=== PATIENT | female | born 1995 | race Caucasian/White ===

== ENCOUNTER 2023-09-25 06:55 | Inpatient (IN) ==
[2023-09-25] MEDS ORDERED: ACETAMINOPHEN 1,000 MG/100 ML VIAL IV STA ×2 (07:24→15:11)
[2023-09-25] MEDS ORDERED: ONDANSETRON INJ 2 MG/ML 2 ML VIAL IV STA ×2 (07:24→11:14)
[2023-09-25] MEDS ORDERED: SODIUM CHLORIDE 0.9% 1,000 ML IV STA (07:24)
--- NOTE | 2023-09-25 07:46 | Emergency Department Note ---
ED Provider Note History of Present Illness Chief Complaint: Abdominal Pain Stated Complaint: PAIN RT SIDE UNDER RIB CAGE,BACK PAIN CLEARED L&D Time Seen by Provider: 09/25/23 07:07 28-year-old female who presents to the emergency department with complaint of right upper quadrant, flank and back pain. Patient reports that the pain awakened her around 4 AM this morning. The patient got into a bathtub, and reports that this only made it worse. Patient has also had several episodes of nausea and vomiting. The patient reports that she has recently been constipated. The patient is currently 30 weeks . She was seen by CERTIFIED MASSAGE THERAPIST this morning, and cleared for any related etiologies. Patient denies eating any unusual foods yesterday. She denies any known sick contacts. The patient rates her discomfort a 4 out of 10. Patient is status post cholecystectomy. Home Medications Medication Instructions Recorded Confirmed Type vits no.[id number]-ferrous fum 1 tab PO QPM 09/25/23 09/25/23 History 27 mg iron-folic acid 800 mcg tablet ( Vitamin) Allergies Allergy/AdvReac Type Severity Reaction Status Date / Time cinnamon Allergy Intermediate Tongue Verified 09/25/23 11:38 swells No Known Drug Allergies Allergy 0 Verified 09/25/23 11:38 Past Med/Surg History Medical History Varicella vaccination History of COVID-19 diagnosed end of 04/2022 via home test ONLY--cough, fatigue, body aches, loss of taste/smell, fever--no symptoms now Medical marijuana use MRSA infection 2014 IBS (irritable bowel syndrome) GERD (gastroesophageal reflux disease) DVT (deep venous thrombosis) 06/2018 after immobilization from bunionectomy Treated with AC for 2 months, no problems since Migraines Surgical History S/P cholecystectomy History of colonoscopy History of esophagogastroduodenoscopy (EGD) last 05/2022 @ [facility] History of incision and drainage ~2014 r/t MRSA infection in leg (unsure of side) History of bunionectomy right foot S/P wisdom tooth extraction Family History Grandmother (Maternal) Breast cancer Grandmother Breast cancer maternal great grandmother Mother Diabetes IBS (irritable bowel syndrome) Grandfather (Maternal) Myocardial infarction Other No family history of adverse response to anesthesia Denies family history of Ovarian cancer Prostate cancer Colorectal cancer Uterine cancer Social History Smoking Status: Never smoker Second Hand Exposure: No; Do You Dip or Chew Tobacco: No; Hx Alcohol Use: No Hx Substance Use: No Preferred Language: Kittitian Communication Ability: Effective Visual Impairment: No Limitations Hearing Ability: Normal Care Services Manager Required: No Beliefs That Will Affect Care: None marital status: marital status details: Aric Hammonds (28) [phone] Current Living Situation: Significant Other Current Living Situation Comment: Lives with eliza cannon-Fob changing ltter current occupational status: employed 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 [employer] Feels Safe at Home: Yes Childhood Exposure to Second-Hand Smoke: No Diet: other Diet Comment: Light diet caffeine: Yes during the past year weight has: remained stable Dental Care, Regularly: Yes Physical Activity Frequency: 1-2 Times per Week Seatbelt Use: always Sunscreen Use: Yes Assistive Devices: Contacts and Glasses Physical Exam Vital Signs Vital Signs - 24 hr 09/25/23 06:56 09/25/23 07:15 09/25/23 08:18 Temperature 36.6 C Temperature Source Temporal Artery Scan Pulse Rate 82 57 L Pulse Rate [Apical] 62 Respiratory Rate 18 18 Respiratory Effort / Characteristics Non-Labored Spontaneous Respiratory Depth Normal Respiratory Pattern Regular Blood Pressure 136/78 Blood Pressure [Left Arm] 119/70 Blood Pressure Mean 97 Blood Pressure Mean [Left Arm] 86 Blood Pressure Position [Left Arm] Lying Pulse Oximetry 100 100 Oxygen Delivery Method Room Air Sepsis Recent Fever Within 48 Hours No Sepsis New/Unexplained Change in Mental Status N/A Sepsis Action Taken by Nursing No Action Required 09/25/23 10:56 09/25/23 12:04 09/25/23 12:25 Temperature Temperature Source Pulse Rate 79 Pulse Rate [Apical] 58 L 60 Respiratory Rate 18 18 Respiratory Effort / Characteristics Non-Labored Spontaneous Non-Labored Spontaneous Respiratory Depth Normal Normal Respiratory Pattern Regular Regular Blood Pressure Blood Pressure [Left Arm] 135/69 153/77 H Blood Pressure Mean Blood Pressure Mean [Left Arm] 91 102 Blood Pressure Position [Left Arm] Lying Lying Pulse Oximetry 99 100 Oxygen Delivery Method Room Air Room Air Sepsis Recent Fever Within 48 Hours Sepsis New/Unexplained Change in Mental Status Sepsis Action Taken by Nursing 09/25/23 14:48 09/25/23 16:24 Temperature Temperature Source Pulse Rate 76 Pulse Rate [Apical] 85 Respiratory Rate 18 Respiratory Effort / Characteristics Non-Labored Spontaneous Respiratory Depth Normal Respiratory Pattern Regular Blood Pressure Blood Pressure [Left Arm] 150/84 H Blood Pressure Mean Blood Pressure Mean [Left Arm] 106 Blood Pressure Position [Left Arm] Lying Pulse Oximetry 100 Oxygen Delivery Method Room Air Sepsis Recent Fever Within 48 Hours Sepsis New/Unexplained Change in Mental Status Sepsis Action Taken by Nursing CONSTITUTIONAL: Healthy and well nourished. Patient appears in moderate discomfort. HEENT: No scleral icterus or conjunctival injection/pallor. NECK: Full active range of motion without discomfort. RESPIRATORY: Clear to auscultation bilaterally with no wheezing, crackles, rhonchi or stridor. CARDIOVASCULAR: Regular rate and rhythm with no murmurs, rubs or gallops. GASTROINTESTINAL: Bowel sounds present in all quadrants. Patient has generalized upper abdominal tenderness to palpation. Negative CVA tenderness. Negative McBurney's point tenderness. No abdominal rigidity, guarding or rebound MUSCULOSKELETAL: Full range of motion of all joints without discomfort. INTEGUMENTARY: No rash or other significant dermatologic conditions noted. HEMATOLOGIC: No ecchymosis or petechiae. PSYCHIATRIC: Flat affect. NEUROLOGIC: No focal neurologic deficits noted. Course Course Patient history and physical exam were performed. Nurses notes were reviewed. Vital signs were reviewed and were normal. IV access was established, and labs were drawn. Patient was hydrated with a liter normal saline, and administered IV Zofran and Toradol. Review of labs shows a white count of over 18,000. Remaining labs, including CMP and lipase are normal. Urinalysis is not suggestive of infection. Findings were discussed with Dr. Crandall, ED attending physician, regarding imaging modalities. He recommended that I discussed the case further with a radiologist. I then discussed the case further with Dr. Dixon, who recommended a CT with IV contrast for further assessment. CT was performed, showing an asymmetric enlargement of the right adrenal gland with adjacent stranding of the adrenal gland, as well as the mid to upper pole of the right kidney. No hydronephrosis or ureteral calculi are appreciated. The appendix also appeared to be normal. Findings were discussed with the patient and Dr. Crandall. At this point, I reached out to Dr. Hollis Fox, [facility] nephrology, who was uncertain of possible etiologies for the patient's symptoms and CT findings. After further discussions with Dr. Crandall, I reached out to Dr. Baker, [facility] endocrinology, he further discussed the case with Dr. Dixon, and had concerns for possible adrenal hemorrhage. He is recommending that the patient be admitted with cortisol levels and MRI studies. The patient initially was resistant to admission, but after discussing her findings, she did agree to be admitted. Dr. Crandall also discussed the case with the patient as well. The case was then discussed with the [facility] hospitalist service, who in turn spoke with the general surgeon and CERTIFIED MASSAGE THERAPIST on-call. It was recommended that the patient be transferred to a facility with a NICU in case she goes into delivery. I discussed these conversations again with the patient, who has agreed to transfer to [facility]. I then spoke with Dr. Silver, endocrinology resident, who indicated that given the patient's presenting symptoms, labs and elevated blood pressure, the patient likely is not in adrenal crisis. At this point, he did not feel that the patient requires emergent transfer, but did recommend ordering a cortisol level, and provide an initial IV dose of hydrocortisone 50 mg. The case was then further discussed with the hospitalist and attending physician, as well as the patient. An order was placed for hydrocortisone 50 mg IV. I also put an order in for an an abdominal MRI. Shortly after doing so, I received a return phone call from Dr. Silver, who discussed this with his attending and peers, especially given the patient's status, and was recommended that she be transferred to [facility] for further management. The patient was in agreement with this plan as well. The case was also discussed with Dr. Mehta, triage physician, who indicated that they would provide a bed assignment for direct admission. While in the emergency department, the patient reported adequate nausea and pain control. While awaiting bed assignment, random cortisol level did return at 43.41. I did recontact Dr. Silver, who indicated that the patient did not need any additional administration of hydrocortisone. The patient was also somewhat frustrated while awaiting bed assignment, reporting persistent nausea and pain. After further discuss symptoms with Dr. Crandall, the patient was administered additional IV Dilaudid, Tylenol and Phenergan. At approximately 4 PM, I had our construction secretary reach out to the [facility] center to determine bed availability, and was advised that the patient likely would not be able to be transferred until tomorrow. At this point, the case was then discussed [facility], as well as Dr. Roy, [facility] hospitalist, who indicated that we do not have any beds available either. I indicated that I would order an MRI. Hospitalist also recommended that I ask if CERTIFIED MASSAGE THERAPIST would admit the patient. I reached out to Dr. Morris, CERTIFIED MASSAGE THERAPIST, however she was going into a delivery case. Administered Medications Sodium Chloride (Nss) 500 mls @ 125 mls/hr IV .Q4H HOSSEIN Stop: 10/25/23 12:44 Last Admin: 09/25/23 13:06 Dose: 125 mls/hr Documented By: SHAYE Discontinued Medications Hydrocortisone Sodium Succinate (Hydrocortisone Sod Succinate 100 Mg/2 Ml Vial) 50 mg IV NOW STA Stop: 09/25/23 12:13 Last Admin: 09/25/23 13:06 Dose: 50 mg Documented By: SHAYE Hydromorphone HCl (Hydromorphone Inj 0.5 Mg/0.5 Ml Syr) 0.25 mg IV NOW STA Stop: 09/25/23 11:15 Last Admin: 09/25/23 11:20 Dose: 0.25 mg Documented By: SHAYE Hydromorphone HCl (Hydromorphone Inj 0.5 Mg/0.5 Ml Syr) 0.5 mg IV NOW STA Stop: 09/25/23 15:12 Last Admin: 09/25/23 15:58 Dose: 0.5 mg Documented By: ANA Sodium Chloride (Nss) 1,000 mls @ 999 mls/hr IV .Q1H1M STA Stop: 09/25/23 08:24 Last Infusion: 09/25/23 10:57 Dose: Infused Documented By: Admin: 09/25/23 07:39 Dose: 999 mls/hr Documented By: SHAYE Acetaminophen (Ofirmev) 1,000 mg in 100 mls @ 400 mls/hr IV NOW STA Stop: 09/25/23 07:38 Last Infusion: 09/25/23 08:17 Dose: Infused Documented By: Admin: 09/25/23 07:39 Dose: 400 mls/hr Documented By: SHAYE Acetaminophen (Ofirmev) 1,000 mg in 100 mls @ 400 mls/hr IV NOW STA Stop: 09/25/23 15:25 Last Infusion: 09/25/23 16:13 Dose: Infused Documented By: Admin: 09/25/23 15:58 Dose: 400 mls/hr Documented By: ANA Promethazine HCl (Phenergan) 6.25 mg in 50.25 mls @ 201 mls/hr IV NOW STA Stop: 09/25/23 15:25 Last Infusion: 09/25/23 16:20 Dose: Infused Documented By: Admin: 09/25/23 16:00 Dose: 201 mls/hr Documented By: ANA Ioversol (Optiray 320 500ml) 87 ml IV ONCE ONE Stop: 09/25/23 08:55 Last Admin: 09/25/23 08:54 Dose: 87 ml Documented By: SLOAN Metoclopramide HCl (Metoclopramide Hcl Inj 5 Mg/Ml 2 Ml Vial) 5 mg IV ONE ONE Stop: 09/25/23 12:39 Last Admin: 09/25/23 13:06 Dose: 5 mg Documented By: SHAYE Ondansetron HCl (Ondansetron Inj 2 Mg/Ml 2 Ml Vial) 4 mg IV NOW STA Stop: 09/25/23 07:25 Last Admin: 09/25/23 07:39 Dose: 4 mg Documented By: SHAYE Ondansetron HCl (Ondansetron Inj 2 Mg/Ml 2 Ml Vial) 4 mg IV NOW STA Stop: 09/25/23 11:15 Last Admin: 09/25/23 11:21 Dose: 4 mg Documented By: SHAYE Medical Decision Making Medical Records Attestation: I reviewed the patient's medical records. Home Medications was personally reviewed by me Laboratory Data Attestation: I reviewed the patient's lab results. 09/25/23 07:40 09/25/23 07:40 Lab Results 09/25/23 09/25/23 Range/Units 07:40 08:47 WBC 18.20 H (4.8-10.8) K/ul RBC 4.11 L (4.20-5.40) M/uL Hgb 12.5 (12.0-16.0) g/dl Hct 37.4 (37.0-47.0) % MCV 91.0 (80.0-100.0) fL MCH 30.4 (25.0-34.0) pg MCHC 33.4 (32.0-36.0) g/dL RDW Std Deviation 40.9 (36.4-46.3) fL RDW Coeff of Nikki 12.3 (11.5-14.5) % Plt Count 387 (130-400) K/uL MPV 10.0 (9.4-12.4) fL Immature Gran % (Auto) 1.3 % Neut % (Auto) 86.8 % Lymph % (Auto) 7.0 % [place] % (Auto) 4.5 % Eos % (Auto) 0.1 % Baso % (Auto) 0.3 % Neut # (Auto) 15.80 H (1.40-6.50) K/uL Lymph # (Auto) 1.27 (1.20-3.40) K/uL [place] # (Auto) 0.82 H (0.11-0.59) K/uL Eos # (Auto) 0.02 (0.00-0.50) K/uL Baso # (Auto) 0.05 (0.00-0.20) K/uL Immature Gran # (Auto) 0.24 H (0.01-0.20) K/uL Sodium 136 (136-145) mmol/L Potassium 3.6 (3.5-5.1) mmol/L Chloride 104 (98-107) mmol/L Carbon Dioxide 23 (21-32) mmol/L Anion Gap 9 (3-11) BUN 5 L (6-23) mg/dl Creatinine 0.51 L (0.6-1.2) mg/dl Est Cr Clr Drug Dosing Not Reportable Est GFR ( Amer) > 150.0 ml/min Est GFR (Non-Af Amer) 130.9 ml/min BUN/Creatinine Ratio 9.8 L (10-20) Glucose 162 H (70-99(Fasting)) mg/dl Calcium 8.2 L (8.6-10.3) mg/dl Total Bilirubin 0.2 (0.2-1.0) mg/dl AST 11 L (13-39) U/L ALT 11 (7-52) U/L Alkaline Phosphatase 75 (34-104) U/L Total Protein 6.4 (6.0-8.3) gm/dl Albumin 3.6 (3.4-5.0) gm/dl Globulin 2.8 (2.5-4.0) gm/dl Albumin/Globulin Ratio 1.3 (0.9-2) Lipase 15 (11-82) U/L Random Cortisol 43.41 mcg/dl Urine Color Yellow Urine Appearance Cloudy A (Clear) Urine pH 8.0 H (4.5-7.5) Ur Specific [place] 1.015 (1.000-1.030) Urine Protein Negative (Negative) Urine Glucose (UA) 2+ H (Negative) Urine Ketones Trace H (Negative) Urine Blood Negative (Negative) Urine Nitrite Negative (Negative) Urine Bilirubin Negative (Negative) Urine Urobilinogen Negative (Negative) Ur Leukocyte Esterase Trace H (Negative) Urine WBC (Auto) 1-5 (0-5) /hpf Urine RBC (Auto) 0-4 (0-4) /hpf U Hyaline Cast (Auto) 1-5 (0-5) /lpf U Epithel Cells (Auto) >30 H (0-5) /lpf Urine Bacteria (Auto) Negative (Negative) Ur Renal Epithelial Cell Not Reportable Imaging Data Attestation: I personally reviewed and interpreted this imaging study as follows: My Impression: My interpretation of a CT with IV contrast of the abdomen and pelvis did not show evidence for hydronephrosis, obvious ureteral calculi, bowel obstruction or abdominal free air. Radiologist is questioning right adrenal gland enlargement with adjacent stranding, with differentials possibly being an early right adrenal hemorrhage or pyelonephritis. Radiologist report is included below, and was reviewed with concurrence. Radiologist's Impression: Abdomen/Pelvis CT 09/25/23 08:24 CT OF THE ABDOMEN AND PELVIS WITH CONTRAST CLINICAL HISTORY: RUQ/R flank pain, elev WBC, 30 wks preg COMPARISON STUDY: CT of the abdomen and pelvis September 10, 2020. Right upper quadrant ultrasound March 08, 2022. TECHNIQUE: Following IV administration of 87 mL of Optiray, axial images of the abdomen and pelvis were obtained from the lung bases to the proximal femurs. Images were reviewed in the axial, sagittal, and coronal planes. IV contrast was administered without complication. Automated exposure control was utilized for the study. A dose lowering technique was utilized adhering to the principles of ALARA. CT DOSE: 1317.25 mGy.cm FINDINGS: Lung bases are unremarkable. No pneumatosis, free air or portal venous gas is present. There is no biliary ductal dilatation status post cholecystectomy. There are no hepatic lesions. Spleen, left adrenal gland, left kidney and pancreas are normal. There is no hydronephrosis. No urinary calculi are identified although sensitivity is diminished given excreted contrast. There is asymmetric enlargement of the right adrenal gland which maintains adreniform configuration. The right adrenal gland appears edematous with moderate adjacent stranding. There is also stranding adjacent to the mid to upper pole of the right kidney. The nephrograms are symmetric. There is no abscess. Major vasculature is patent. The caliber and wall thickness of small and large bowel are normal. The appendix is normal. There is no lymphadenopathy. There are no fluid collections. Intrauterine gestation is present. IMPRESSION: 1. Asymmetric enlargement of the right adrenal gland with stranding adjacent to the right adrenal gland and mid to upper pole of the right kidney. Homogeneous enhancement of the right kidney. No hydronephrosis. No ureteral calculi. These findings are nonspecific. Although pyelonephritis is within the differential, the right adrenal gland appears to be the primary abnormality. Therefore, nonspecific right adrenal inflammation is within the differential. An early right adrenal hemorrhage could appear similar. Findings discussed with Gabo Ferrera at time of dictation. 2. Intrauterine gestation. 3. Normal appendix. No bowel obstruction. No bowel wall thickening. ACT 112: Negative or not required by law. Electronically signed by: bK Dixon M.D. 09/25/2023 9:20 AM MDM Narrative See ED Course section for further details of today's visit. The patient reports to the emergency department with complaint of right upper quadrant, right flank and right back pain, along with nausea and vomiting upon awakening this morning. The patient was also previously seen this morning by CERTIFIED MASSAGE THERAPIST who did not feel that symptoms were due to her current , and was referred to the emergency department for further workup. Patient did have lab work showing a notably elevated white count of over 18,000. Given the patient's symptoms, CT with IV contrast of the abdomen and pelvis was performed, showing a right adrenal enlargement with adjacent stranding. Differentials considered included hemorrhage. Additional workup does not show evidence for UTI. Lab work also is not suggestive of pancreatitis or hepatitis. The patient is status post cholecystectomy. Given the patient's symptoms and adrenal enlargement, the patient will be admitted for further lab workup, including cortisol levels, and MRI studies. The case was discussed with multiple providers, including radiology, nephrology and endocrinology, both at our facility and [facility]. Based on her abnormal CT findings, concern for adrenal crisis/insufficiency, and third trimester status, it was determined that transfer to a tertiary care center was warranted. The patient will be direct admitted to [facility]. Patient will be transferred via ALS ambulance for further monitoring en route. After contacting [facility], we were advised that the patient's bed would not likely be available until tomorrow. At this point, I did reach out to the hospitalist service, who asked that I speak with CERTIFIED MASSAGE THERAPIST to see if they would consider admitting the patient's since we did not have any additional inpatient hospital beds available. I was awaiting this conversation with Dr. Koenig, but unfortunately she went into a delivery. At change of shift, the case was then further discussed with Yudith Mosquera PA-C, who will discuss this further with Dr. Koenig, advising her of the patient's pending MRI studies. Impression Adrenal abnormality, Acute right flank pain, Third trimester Discharge Plan Visit Data Chief Complaint: Abdominal Pain Stated Complaint: PAIN RT SIDE UNDER RIB CAGE,BACK PAIN CLEARED L&D ED Provider: Tal Crandall ED Midlevel Provider: Yudith Mosquera Discharge Problem: Adrenal abnormality, Acute right flank pain, Third trimester Forms Stand Alone Forms: [email or web address] Prescriptions Prescriptions: No Action Vitamin 27 mg iron- 800 mcg Tablet 1 tab PO QPM Referrals Referrals: Joaquina Mendenhall CRNP [Primary Care Provider] -
[2023-09-25 07:57] LABS: Basophils # (auto) 0.05 K/uL (0.00-0.20); Basophils % (auto) 0.3 %; Eosinophils # (auto) 0.02 K/uL (0.00-0.50); Eosinophils % (auto) 0.1 %; Hematocrit (blood only) 37.4 % (37.0-47.0); Hemoglobin 12.5 g/dl (12.0-16.0); Immature Granulocytes # (auto) 0.24 K/uL (0.01-0.20); Immature Granulocytes % (auto) 1.3 %; Lymphocytes # (auto) 1.27 K/uL (1.20-3.40); Mean Corpuscular Hemoglobin 30.4 pg (25.0-34.0); Mean Corpuscular Hgb Conc 33.4 g/dL (32.0-36.0); Monocytes # (auto) 0.82 K/uL (0.11-0.59); Monocytes % (auto) 4.5 %; Neutrophils % (auto) 86.8 %; Platelet Count 387 K/uL (130-400); RDW Coefficient of Variation 12.3 % (11.5-14.5); RDW Standard Deviation 40.9 fL (36.4-46.3); Red Blood Count 4.11 M/uL (4.20-5.40)
[2023-09-25 08:13] LABS: Alanine Aminotransferase 11 U/L (7-52); Albumin Globulin Ratio 1.3 (0.9-2); Albumin Level 3.6 gm/dl (3.4-5.0); Alkaline Phosphatase 75 U/L (34-104); Anion Gap 9 (3-11); Aspartate Aminotransferase 11 U/L (13-39); BUN Creatinine Ratio 9.8 (10-20); Bilirubin,Total 0.2 mg/dl (0.2-1.0); Blood Urea Nitrogen 5 mg/dl (6-23); Calcium 8.2 mg/dl (8.6-10.3); Carbon Dioxide 23 mmol/L (21-32); Chloride 104 mmol/L (98-107); Est GFR (African American) > 150.0 ml/min; Est GFR (Non-African American) 130.9 ml/min; Globulin 2.8 gm/dl (2.5-4.0); Glucose 162 mg/dl (70-99(Fasting)); Lipase 15 U/L (11-82); Potassium 3.6 mmol/L (3.5-5.1); Sodium 136 mmol/L (136-145); Total Protein 6.4 gm/dl (6.0-8.3)
[2023-09-25] MEDS ORDERED: OPTIRAY 320 500ml IV ONE (08:54)
[2023-09-25 09:00] LABS: Appearance Urine Cloudy (Clear); Bacteria Urine Automated Negative (Negative); Bilirubin Urine Negative (Negative); Blood Urine Negative (Negative); Color Urine Yellow; Epithelial Cell Urine Auto >30 /lpf (0-5); Glucose Urine UA 2+ (Negative); Ketones Urine Trace (Negative); Leukocyte Esterase Urine Trace (Negative); Nitrite Urine Negative (Negative); Protein Urine Negative (Negative); RBC Urine Automated 0-4 /hpf (0-4); Specific Gravity Urine 1.015 (1.000-1.030); Urobilinogen Urine Negative (Negative)
--- NOTE | 2023-09-25 09:22 | CT Scan Report ---
CT OF THE ABDOMEN AND PELVIS WITH CONTRAST CLINICAL HISTORY: RUQ/R flank pain, elev WBC, 30 wks preg COMPARISON STUDY: CT of the abdomen and pelvis September 10, 2020. Right upper quadrant ultrasound Ju ne 2021. TECHNIQUE: Following IV administration of 87 mL of Optiray, axial images of the abdomen and pelvis we re obtained from the lung bases to the proximal femurs. Images were reviewed in the axial, sagittal, and coronal planes. IV contrast was administered without complication. Automated exposure control wa s utilized for the study. A dose lowering technique was utilized adhering to the principles of ALARA . CT DOSE: 1317.25 mGy.cm FINDINGS: Lung bases are unremarkable. No pneumatosis, free air or portal venous gas is present. Ther e is no biliary ductal dilatation status post cholecystectomy. There are no hepatic lesions. Spleen, left adrenal gland, left kidney and pancreas are normal. There is no hydronephrosis. No urinary calcu li are identified although sensitivity is diminished given excreted contrast. There is asymmetric enl argement of the right adrenal gland which maintains adreniform configuration. The right adrenal gland appears edematous with moderate adjacent stranding. There is also stranding adjacent to the mid to u pper pole of the right kidney. The nephrograms are symmetric. There is no abscess. Major vasculature is patent. The caliber and wall thickness of small and large bowel are normal. The appendix is normal . There is no lymphadenopathy. There are no fluid collections. Intrauterine gestation is present. IMPRESSION: 1. Asymmetric enlargement of the right adrenal gland with stranding adjacent to the right adrenal gla nd and mid to upper pole of the right kidney. Homogeneous enhancement of the right kidney. No hydrone phrosis. No ureteral calculi. These findings are nonspecific. Although pyelonephritis is within the d ifferential, the right adrenal gland appears to be the primary abnormality. Therefore, nonspecific ri ght adrenal inflammation is within the differential. An early right adrenal hemorrhage could appear s imilar. Findings discussed with Gabo Ferrera at time of dictation. 2. Intrauterine gestation. 3. Normal appendix. No bowel obstruction. No bowel wall thickening. ACT 112: Negative or not required by law. Electronically signed by: Kb Dixon M.D. 09/25/2023 9:20 AM
[2023-09-25] MEDS ORDERED: HYDROmorphone INJ 0.5 MG/0.5 ML SYR IV STA ×3 (11:14→20:00)
[2023-09-25] MEDS ORDERED: HYDROCORTISONE SOD SUCCINATE 100 MG/2 ML VIAL IV STA (12:12)
[2023-09-25] MEDS ORDERED: METOCLOPRAMIDE HCL INJ 5 MG/ML 2 ML VIAL IV ONE (12:38)
[2023-09-25] MEDS: SODIUM CHLORIDE 0.9% 500 ML IV SCH ×3 (13:06→20:27)
[2023-09-25] MEDS ORDERED: PROMETHAZINE 6.25 MG/50.25 ML BAG IV STA (15:11)
--- NOTE | 2023-09-25 15:33 | Emergency Department Note ---
ED Visit Note I was consulted by the Advanced Practice Provider, Gabo Ferrera PA-C. I personally made/approved the management plan and take responsibility for the patient management. I performed a substantive portion of the visit. This includes the aspects of: -History/Physical/Personally seeing the patient -MDM -I independently interpreted the following studies: CT imaging of the abdomen pelvis performed after discussion with radiology. Right upper quadrant concerning for possible adrenal hemorrhage. Cortisol testing performed and is within normal limits. [facility], endocrinology, nephrology, and internal medicine consulted here. Transfer was recommended. [facility] was consulted. Patient accepted in transfer. Patient was treated symptomatically with Dilaudid and antiemetics. Interfacility medical command done by me. Please see SABA note for further details. .
--- NOTE | 2023-09-25 17:33 | Emergency Department Note ---
ED Visit Note Care of this patient was signed out to me by Gabo Ferrera PA-C at change of shift. 4 am right side pain, vomiting - gets uncomfortable during night 30 weeks feeling better now nausea, .
[2023-09-25] MEDS ORDERED: cefTRIAXone SODIUM 2,000 MG/50 ML BAG IV STA (17:47)
--- NOTE | 2023-09-25 18:47 | Magnetic Resonance Report ---
MR abdomen wo con HISTORY: 28 years-old Female Eval R adrenal edema, possible hemorrhage acute bilateral flank pain COMPARISON: CT abdomen and pelvis of same day TECHNIQUE: Multiplanar multisequence MRI of the abdomen was obtained without the use of IV contrast. FINDINGS: Study is motion degraded. No acute abnormality identified within the imaged lower chest. Spleen, and left adrenal gland are unremarkable. 7 mm T2 hyperintense lesion of the pancreatic tail may represent a sidebranch IPMN. Cholecystectomy. Unremarkable liver. An intrauterine fetus is noted in cephalic p ositioning. Superior position of the placenta. No hydronephrosis. There is inflammatory stranding adj acent to the superior pole right kidney. The right adrenal gland medial and lateral limbs are thicken ed with increased T2 signal demonstrate moderate surrounding inflammatory stranding. Conglomerate adr enal glands overall measure up to 4.4 x 1.4 x 3.0 cm on image 8 series 6. No definite T1 hyperintensi ty noted on the T1 images however these are very motion degraded. No bowel obstruction or bowel wall thickening identified. Unremarkable abdominal aorta and IVC. No ly mphadenopathy. Unremarkable soft tissues and osseous structures. IMPRESSION: 1. Motion degraded exam. 2. Asymmetric enlargement of the right adrenal gland with increased T2 signal and surrounding moderat e amount of edema suggestive of spontaneous adrenal hemorrhage. 3. Inflammation surrounding the superior pole right kidney is likely secondary to the adrenal patholo gy. 4. No hydronephrosis. 5. Partially imaged intrauterine fetus. ACT 112: Negative or not required by law. The above report was generated using voice recognition software. It may contain grammatical, syntax o r spelling errors. Electronically signed by: Nikolay Kwon M.D. 09/25/2023 6:45 PM
--- NOTE | 2023-09-25 19:15 | History & Physical Report ---
Date of Service September 25, 2023 Assessment & Plan (1) Acute right flank pain: Plan: Patient being admitted with acute right flank pain. CT scan and MRI showing early signs of right adrenal gland hemorrhage. Cortisol level have not decreased and BP is stable. ED ordered a one time dose of 50 mg of hydrocortisone Patient accepted for transfer at [place] in case patient went into labor, as this facility does not have a NICU> D/W Surgery Specialist. will monitor for now. (2) Adrenal abnormality: Plan: as above (3) Third trimester : Plan: consult human resources consultant Recommend antibiotics for possible UTI. History of Present Illness Chief Complaint: right flank pain Primary Care Provider: JAIMIE Scott 28-year-old female who presents to the emergency department with complaint of right upper quadrant, flank and back pain. Pain began this AM and woke her up around 4 AM. Patient tried to improve her pain by going into a bathtub but this made it worse. This was accaompnaied by nausea and vomiting. Patient is 30 weeks . Patient saw it associate, and did not find any obstetric complications. Patient was seen in the ED, imaging ordered which showed signs of adrenal hemorrhage. Allergies Allergy/AdvReac Type Severity Reaction Status Date / Time cinnamon Allergy Intermediate Tongue Verified 09/25/23 11:38 swells No Known Drug Allergies Allergy 0 Verified 09/25/23 11:38 Home Medications Medication Instructions Recorded Confirmed Type vits no.124-ferrous fum 1 tab PO QPM 09/25/23 09/25/23 History 27 mg iron-folic acid 800 mcg tablet ( Vitamin) Past Med/Surg History Medical History Varicella vaccination History of COVID-19 diagnosed end of 04/2022 via home test ONLY--cough, fatigue, body aches, loss of taste/smell, fever--no symptoms now Medical marijuana use MRSA infection 2014 IBS (irritable bowel syndrome) GERD (gastroesophageal reflux disease) DVT (deep venous thrombosis) 06/2018 after immobilization from bunionectomy Treated with AC for 2 months, no problems since Migraines Surgical History S/P cholecystectomy History of colonoscopy History of esophagogastroduodenoscopy (EGD) last 05/2022 @ [facility] History of incision and drainage ~2014 r/t MRSA infection in leg (unsure of side) History of bunionectomy right foot S/P wisdom tooth extraction Family History Grandmother (Maternal) Breast cancer Grandmother Breast cancer maternal great grandmother Mother Diabetes IBS (irritable bowel syndrome) Grandfather (Maternal) Myocardial infarction Other No family history of adverse response to anesthesia Denies family history of Ovarian cancer Prostate cancer Colorectal cancer Uterine cancer Social History Smoking Status: Never smoker Second Hand Exposure: No; Do You Dip or Chew Tobacco: No; Hx Alcohol Use: No Hx Substance Use: No Preferred Language: Armenian Communication Ability: Effective Visual Impairment: No Limitations Hearing Ability: Normal Pony Edger Required: No Beliefs That Will Affect Care: None marital status: marital status details: Aric Hammonds (28) [phone] Current Living Situation: Spouse Current Living Situation Comment: Lives with eliza cannon-Faby changing ltter current occupational status: employed 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[employer] Feels Safe at Home: Yes Childhood Exposure to Second-Hand Smoke: No Diet: other Diet Comment: Light diet caffeine: Yes during the past year weight has: remained stable Dental Care, Regularly: Yes Physical Activity Frequency: 1-2 Times per Week Seatbelt Use: always Sunscreen Use: Yes Assistive Devices: None Review of Systems Constitutional: + body aches; no fever Eyes: no blind spots Ear, Nose, Mouth, Throat: no ear pain Respiratory: no cough Cardiovascular: no chest pain Gastrointestinal: + abdominal pain, + nausea and + vomitin g Genitourinary: + difficulty urinating; no dysuria Musculoskeletal: no back pain Integumentary: no acne Neurologic: no gait abnormality Psychiatric: no behavioral changes Endocrine: no fatigue Hematologic / Lymphatic: no easy bleeding Allergy / Immunological: no lip swelling Physical Exam Constitutional: WD/WN, vitals as above Eyes: PERRL, conjunctivae normal, anicteric sclerae ENMT: external ear and nose normal, oropharynx normal Neck: trachea midline, no thyromegaly Respiratory: normal respiratory effort, lungs clear to auscultation Cardiovascular: RRR, no murmur, no edema Gastrointestinal (Abdomen): normal bowel sounds, soft, nontender, no hepatosplenomegaly 30 weeks Musculoskeletal: no cyanosis or clubbing, extremities motor strength 5/5 Skin: no rashes, warm and dry Neurologic: PERRL, EOMI, accommodation nl, no face palsy, no dysarthria Psychiatric: A+Ox3, euthymic affect Lymphatic: no cervical or axillary lymphadenopathy Results & Data Results & Data Vital Signs (Past 12 Hours) Vital Signs Pulse Pulse Resp BP Pulse Ox O2 Del Method 09/25/23 16:24 76 09/25/23 14:48 85 18 150/84 H 100 Room Air 09/25/23 12:25 79 09/25/23 12:04 60 18 153/77 H 100 Room Air 09/25/23 10:56 58 L 18 135/69 99 Room Air 09/25/23 08:18 57 L PG Care Time/CCT Total # of Minutes Spent Total Time Spent with Patient: Total time spent is greater than 50% in coordination of care (as documented) at patient's floor/unit and/or counseling patient: Coding Level of Care Code 68991 INT INP/OBS CARE 3/75MIN Diagnoses Acute right flank pain R10.9 Adrenal abnormality E27.9 Third trimester Z34.93
[2023-09-25] MEDS ORDERED: HYDROmorphone INJ 0.5 MG/0.5 ML SYR IV PRN (20:00)
[2023-09-25] MEDS ORDERED: PRENATAL VITAMIN 1 TAB PO SCH (21:00)
[2023-09-25] MEDS: ONDANSETRON INJ 2 MG/ML 2 ML VIAL IV PRN (22:59)
[2023-09-25] MEDS: ACETAMINOPHEN 1,000 MG/100 ML VIAL IV PRN (23:03)
[2023-09-26] MEDS: SODIUM CHLORIDE 0.9% 500 ML IV SCH ×4 (00:44→13:08)
[2023-09-26] MEDS: PROMETHAZINE HCL 6.25 MG in SODIUM CHLORIDE 0.9% 50 ML IV PRN ×2 (03:53→13:05)
[2023-09-26] MEDS: ACETAMINOPHEN 1,000 MG/100 ML VIAL IV PRN (04:13)
--- OUTSIDE RECORDS SUMMARY | 2023-09-26 05:23 | External Medical Summary | Summary of Care ---
Author Name Unknown Organization [facility] Address [address] [place] [address] Phone [phone] Care Team Providers Care Dough Catcher Name Role Phone Joaquina Mendenhall JAIMIE Primary Care Provider [phone] Reason for Visit * Reason Onset Date Comments Test Results 09/25/2023 Encounter Details Date Type Department Care Team ([facility] st Contact Info) Description 09/25/2023 Telephone Endocrinology, [facility] [address] [place] [address] Dae Mittal MD [address] [place] [address] Test Results Allergies Active Allergy Reactions Criticality Noted Date Comments Cinnamon Edema face/lips/tongue High 03/17/2016 documented as of this encounter (statuses as of 09/25/2023) Medications Medication Sig Dispensed Refills Start Date End Date Status Pantoprazole Sodium 40 MG Oral Tablet Delayed Release (Protonix)Indicatio ns:takes at night Take 1 Tablet by mouth in the morning and 1 Tablet in the evening. 180 Tablet 3 10/05/2022 Active Dicyclomine HCl 10 MG Oral Capsule (Bentyl) Take 1 Capsule by mouth 4 times a day before meals and at bedtime. 0 Active Cholestyramine 4 GM Oral Packet (Questran)Indicatio ns:Diarrhea due to malabsorption Take 1 Packet by mouth 2 times a day with morning and evening meals. Mix with water and drink before a meal. 60 Packet 5 01/20/2023 Active Promethazine HCl 25 MG Rectal Suppository (Phenergan)Indicati ons:Nausea and vomiting, unspecified vomiting type Administer 1 Suppository into the rectum every 6 hours as needed for Nausea. 10 Suppository 1 01/20/2023 Active Promethazine HCl 25 MG Oral Tablet (Phenergan)Indicati ons:Nausea and vomiting, unspecified vomiting type Take 1 Tablet by mouth every 6 hours as needed for Nausea. or vomiting 12 Tablet 0 01/20/2023 Active Mirtazapine 15 MG Oral Tablet (Remeron)Indication s:Anxiety state Take 1 Tablet by mouth at bedtime. 30 Tablet 5 01/20/2023 Active documented as of this encounter (statuses as of 09/25/2023) Active Problems Problem Noted Date Diagnosed Date Food insecurity 01/29/2023 Overview: Per [facility] Protocol documented as of this encounter (statuses as of 09/25/2023) Immunizations Name Administration Dates Next Due TDAP (age 10 and older)(Boostrix) 03/17/2014 documented as of this encounter Social History Tobacco Use Types Packs/Day Years Used Date Smoking Tobacco: Never Smokeless Tobacco: Never Alcohol Use Standard Drinks/Week Comments Not Currently 0 (1 standard drink = 0.6 oz pur e alcohol) rarely Hunger Vital Sign Answer Date Recorded Within the past 12 months, y ou worried that your food would run out before you got the money to buy more. Sometimes true Within the past 12 months, t he food you bought just didn't last and you didn't have money to get more. Never true Sex and Gender Information Value Date Recorded Sex Assigned at Female 01/19/2023 9:49 PM EDT Gender Identity Female 01/19/2023 9:49 PM EDT Sexual Orientation Straight 01/19/2023 9: 49 PM EDT Job Start Date Occupation Industry Not on file Not on file Not on file documented as of this encounter Miscellaneous Notes * Telephone Encounter - Dae Mittal MD - 09/25/2023 12:28 PM EST Received a call transfer from ED [facility]. Spoke with Dominick HORN. Rasheed is currently in the ED with flank pain, she is and she was found to have an adrenalgland enlargement. Patient clinically stable. Labs only remarkable for elevated WBC as per our conversation. Initially the plan was to obtain a cortisol. However, given concern for unilateral Adrenal hemorrhage (differential dx from ct scan) and with risk for adrenal insufficiency, I further recommended to get a cortisol level, while we wait to start IV Hydrocortisone 50 mg. Patient will be transfer to [facility] for further evaluation and management. documented in this encounter Plan of Treatment Health Maintenance Due Date Last Done Comments Hepatitis B (1 of 3 - 3-dose series) 1995 COVID-19 Vaccine (#1) 1995 Depression Screening 2007 HIV Screening 2010 Hepatitis C Screening 2013 Pap Smear 2016 Influenza Vaccine (FLU shot) (#1) 2023 DTaP,Tdap,and Td Vaccines (2 - Td or Tdap) 03/17/2024 03/17/2014 GARDASIL-HPV IMMUNIZATION SERIES Aged Out No longer eligible based on patient's age to complete this topic MENINGOCOCCAL (MENACTRA/MENVEO) Aged Out No longer eligible based on patient's age to complete this topic Pneumococcal Vaccine: Pediat rics (0 to 5 Years) and At-Risk Patients (6 to 64 Years) Aged Out No longer eligi ble based on patient's age to complete this topic documented as of this encounter Medical Devices Not on filedocumented as of this encounter Care Teams Dough Catcher Relationship Specialty Start Date End Date Joaquina Mendenhall CRNP [address] [place] [address] PCP - General Nurse Practitioner 01/25/22 documented as of this encounter
[2023-09-26 08:16] LABS: Hematocrit (blood only) 34.4 % (37.0-47.0); Hemoglobin 11.7 g/dl (12.0-16.0); Mean Corpuscular Hemoglobin 30.5 pg (25.0-34.0); Mean Corpuscular Volume 89.8 fL (80.0-100.0); Mean Platelet Volume 9.8 fL (9.4-12.4); Platelet Count 339 K/uL (130-400); RDW Coefficient of Variation 12.3 % (11.5-14.5); RDW Standard Deviation 39.8 fL (36.4-46.3); Red Blood Count 3.83 M/uL (4.20-5.40); White Blood Count 18.71 K/ul (4.8-10.8)
--- NOTE | 2023-09-26 08:24 | OB/GYN Consultation ---
Date of Consultation September 26, 2023 Assessment & Plan (1) Third trimester : heart tracings have been reassuring and no evidence of labor. Will continue to follow her with every shift NSTs until her transfer to [facility] or discharge to home. (2) Acute right flank pain: Evidence of a right adrenal gland hemorrhage but no clinical or laboratory evidence of adrenal crisis at this time. We agree with transfer to a tertiary care center in case delivery would be necessary for so that her adrenal hemorrhage can be treated. History of Present Illness Attending Physician: Stephen Roy History of Present Illness Patient is a 28-year-old 1 P0 female EDC of 12/03/2023 who had presented initially on 09/25 in the early a.m. because of onset of right upper quadrant flank and back pain. This was also accompanied by nausea and vomiting. She was evaluated in labor and delivery for any obstetric reasons for her pain and vomiting. Patient had also complained of decreased movement however monitoring in labor and delivery was reassuring. Preeclampsia blood work was negative and she was sent to the emergency room for further evaluation of her pain. There was a concern for either a kidney stone or pyelonephritis. Her urinalysis was negative for bacteria. Patient was not having any fever or chills. She denied any vaginal bleeding or change in vaginal discharge. Up to this point she has had a relatively uncomplicated . She did have a consultation with hematology concerning a DVT she acquired while she had the cast on her leg. They felt because of the etiology of the DVT and no history of DVT while taking oral contraceptives, that she did not need to be on Lovenox prophylactically during the . CT scan in the emergency room showed no evidence of a right ureteral stone or hydronephrosis but she did appear to have an abnormal looking right adrenal gland consistent with a possible adrenal hemorrhage. Cortisol levels were normal. Because she is in her third trimester and high suspicion for a right adrenal gland hemorrhage she was admitted to the telemetry unit for monitoring until a bed was available at [facility] for further observation and potential treatment. Allergies Allergy/AdvReac Type Severity Reaction Status Date / Time cinnamon Allergy Intermediate Tongue Verified 09/25/23 11:38 swells No Known Drug Allergies Allergy 0 Verified 09/25/23 11:38 Home Medications Medication Instructions Recorded Confirmed Type vits no.124-ferrous fum 1 tab PO QPM 01/02/24 01/02/24 History 27 mg iron-folic acid 800 mcg tablet ( Vitamin) Patient History Medical History Varicella vaccination History of COVID-19 diagnosed end of 04/2022 via home test ONLY--cough, fatigue, body aches, loss of taste/smell, fever--no symptoms now Medical marijuana use MRSA infection 2014 IBS (irritable bowel syndrome) GERD (gastroesophageal reflux disease) DVT (deep venous thrombosis) 06/2018 after immobilization from bunionectomy Treated with AC for 2 months, no problems since Migraines Surgical History S/P cholecystectomy History of colonoscopy History of esophagogastroduodenoscopy (EGD) last 05/2022 @ [facility] History of incision and drainage ~2014 r/t MRSA infection in leg (unsure of side) History of bunionectomy right foot S/P wisdom tooth extraction Family History Grandmother (Maternal) Breast cancer Grandmother Breast cancer maternal great grandmother Mother Diabetes IBS (irritable bowel syndrome) Grandfather (Maternal) Myocardial infarction Other No family history of adverse response to anesthesia Denies family history of Ovarian cancer Prostate cancer Colorectal cancer Uterine cancer Social History Smoking Status: Never smoker Second Hand Exposure: No; Do You Dip or Chew Tobacco: No; Hx Alcohol Use: No Hx Substance Use: No Preferred Language: South Korean Communication Ability: Effective Visual Impairment: No Limitations Hearing Ability: Normal Curriculum Consultant Required: No Beliefs That Will Affect Care: None marital status: marital status details: Aric Cassius (28) [phone] Current Living Situation: Spouse Current Living Situation Comment: Lives with fiolga, cats-Fob changing ltter current occupational status: employed 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[employer] Feels Safe at Home: Yes Childhood Exposure to Second-Hand Smoke: No Diet: other Diet Comment: Light diet caffeine: Yes during the past year weight has: remained stable Dental Care, Regularly: Yes Physical Activity Frequency: 1-2 Times per Week Seatbelt Use: always Sunscreen Use: Yes Assistive Devices: None Physical Exam Constitutional: WD/WN, vitals as above Psychiatric: A+Ox3, euthymic affect Genitourinary: OB Exam Abdomen: + fundal height (c/w 30 weeks gestation) OB Exam Monitor Tracing: + external FHT monitor used, + external uterine monitor used, + category I and + normal FHT variability uterus nontender and soft. some RUQ tenderness but patient reports it is less then yesterday. Results & Data Vital Signs (Past 12 Hours) Vital Signs Temp Pulse Pulse Resp BP Pulse Ox O2 Del Method 09/26/23 02:52 98.8 F 62 18 128/77 98 Room Air 09/25/23 23:44 75 09/25/23 22:12 98.6 F 62 18 133/79 100 Room Air 09/25/23 22:10 98.6 F 62 18 133/79 100 Room Air 09/25/23 22:01 Room Air 09/25/23 21:10 67 18 123/63 98 Room Air O2 Flow Rate 09/26/23 02:52 09/25/23 23:44 09/25/23 22:12 09/25/23 22:10 09/25/23 22:01 0 09/25/23 21:10 PG Care Time/CCT Total # of Minutes Spent Total Time Spent with Patient: Total time spent is greater than 50% in coordination of care (as documented) at patient's floor/unit and/or counseling patient: Coding Level of Care Code 72422 IN/OBS CONSULT LVL 3,45M Diagnoses Third trimester Z34.93 Acute right flank pain R10.9
[2023-09-26 08:35] LABS: Alanine Aminotransferase 12 U/L (7-52); Albumin Level 3.4 gm/dl (3.4-5.0); Alkaline Phosphatase 72 U/L (34-104); Anion Gap 8 (3-11); Aspartate Aminotransferase 14 U/L (13-39); BUN Creatinine Ratio 9.1 (10-20); Bilirubin,Total 0.5 mg/dl (0.2-1.0); Blood Urea Nitrogen 4 mg/dl (6-23); Calcium 8.2 mg/dl (8.6-10.3); Carbon Dioxide 24 mmol/L (21-32); Chloride 103 mmol/L (98-107); Creatinine Clr Calc Pharmacy 235.7 ml/min; Est GFR (African American) > 150.0 ml/min; Est GFR (Non-African American) 137.4 ml/min; Glucose 106 mg/dl (70-99(Fasting)); Potassium 3.5 mmol/L (3.5-5.1); Sodium 135 mmol/L (136-145); Total Protein 6.2 gm/dl (6.0-8.3)
[2023-09-26] MEDS: ONDANSETRON INJ 2 MG/ML 2 ML VIAL IV PRN ×2 (08:57→15:17)
--- NOTE | 2023-09-26 15:41 | Discharge Summary ---
Date of Service September 26, 2023 Admission HPI Per Admitting Provider 28-year-old female who presents to the emergency department with complaint of right upper quadrant, flank and back pain. Pain began this AM and woke her up around 4 AM. Patient tried to improve her pain by going into a bathtub but this made it worse. This was accaompnaied by nausea and vomiting. Patient is 30 weeks . Patient saw [employer] hut team member, and did not find any obstetric complications. Patient was seen in the ED, imaging ordered which showed signs of adrenal hemorrhage. Principal Diagnosis acute right flank pain Discharge Exam Constitutional WD/WN, vitals as above Eyes PERRL, conjunctivae normal, anicteric sclerae ENMT external ear and nose normal, oropharynx normal Neck trachea midline, no thyromegaly Respiratory normal respiratory effort, lungs clear to auscultation Cardiovascular RRR, no murmur, no edema Gastrointestinal (Abdomen) normal bowel sounds, soft, nontender, no hepatosplenomegaly Musculoskeletal no cyanosis or clubbing, extremities motor strength 5/5 Skin no rashes, warm and dry Neurologic PERRL, EOMI, accommodation nl, no face palsy, no dysarthria Psychiatric A+Ox3, euthymic affect Lymphatic no cervical or axillary lymphadenopathy Discharge Data Allergies Allergy/AdvReac Type Severity Reaction Status Date / Time cinnamon Allergy Intermediate Tongue Verified 09/25/23 11:38 swells No Known Drug Allergies Allergy 0 Verified 09/25/23 11:38 Consultations 09/25/23 11:14 ED Decision to Admit Stat 09/26/23 07:56 Consult Obstetrics Routine Ordered Studies 09/25/23 08:24 CT Abd and Pelvis [CT abd pelvis IV con only] Stat 09/25/23 16:11 MRI Abdomen [MR abdomen wo con] Stat Hospital Course (1) Acute right flank pain: On admission: Patient being admitted with acute right flank pain. CT scan and MRI showing early signs of right adrenal gland hemorrhage. Cortisol level have not decreased and BP is stable. ED ordered a one time dose of 50 mg of hydrocortisone Patient accepted for transfer at [facility] in case patient went into labor, as this facility does not have a NICU> D/W Shop Blacksmith. will monitor for now. Tylenol and dilaudid ordered for pain On 09/26/23 Patient reports pain has improved No longer requiring narcotics. Tylenol is controlling her pain Patient remains with nausea. Blood work appears stable. D/w Dr. Silver at [facility], patient should still be transferred. Later in the day, a bed became available and patient was transferred to [facility]. (2) Adrenal abnormality: as above (3) Third trimester : urogynaecologist Recommended antibiotics for possible uncomplicated UTI. 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 Total Time Total Time Spent Total Time Spent (In Minutes): 32 Discharge Plan Discharge Items Patient Disposition: Transfer Acute Care Hospital Reason For Visit: ADRENAL HEMORRHAGE Discharge Diagnosis: adrenal hemorrhage Activity: Resume your previous activity Non-emergency contact: Primary Care Provider Call non-emergency contact if: you have any medication questions Follow-up/Referrals: Joaquina Mendenhall CRNP [Primary Care Provider] - Diet: Regular Addtl Attending Provider Instructions: transfer to [facility] Received one dose of ceftriaxone on 1800 (09/25/23) for possible UTI. However, cultures have been negative. But [employer] team member recommended to continue this due to symptoms of urinary retention. Pending Studies at Discharge: No Stand-Alone Forms: My [facility] Skilled Items Patient informed of condition?: Yes DNR: No Discharge Level of Care: Other Communicable Disease: No Discharge Prognosis: Stable Lines: Peripheral IV Urinary Catheter: No Medications and DC Order Prescriptions: Continued Vitamin 27 mg iron- 800 mcg Tablet 1 tab PO QPM Discharge Orders: Discharge Order (Routine); Ordered 09/26/23 Ordered By: Stephen Roy Admission Data Admit Date/Time: 09/25/23 19:06 Attending Provider: Stephen Roy Admit Provider: Stephen Roy Primary Care Provider: Joaquina Mendenhall Other Providers: Stephen Roy; Ebonie Morris; Niall Ellis; Aylin Jacobs; Raegan Webber; Kinjal Bolton; Tariq Napier; Jeannine Kinney; Carolann Johnson; Britney Sanford; Thi Claros; Nikolay Collins Coding Level of Care Code 32535 INP/OBS DISCH >30 MIN Diagnoses Acute right flank pain R10.9 Adrenal abnormality E27.9 Third trimester Z34.93
[2023-09-26] MEDS ORDERED: cefTRIAXone SODIUM 2,000 MG in DEXTROSE 5 % MINI-B 50 ML IV SCH (18:00)
== END 2023-09-26 15:38 | disposition short-term general hospital (02) | DRG 833 ==
LOC: ED 06:55 → EDINP 19:06 → 2S 21:24

== ENCOUNTER 2023-12-03 10:26 | Inpatient (IN) ==
[2023-12-03] MEDS ORDERED: LIDOCAINE 1% LOCAL 20 ML VIAL INFIL PRN (13:05)
[2023-12-03] MEDS ORDERED: OXYTOCIN 30 UNITS/NSS 30 UNITS/500 ML BAG IV PRN (13:05)
--- NOTE | 2023-12-03 13:23 | History & Physical Report ---
Date of Service December 03, 2023 Assessment & Plan (1) : Plan: 28 yo G1 at 40 wga presents in early labor Mild range bps, denies s/s pet. Had been monitored for ghtn during adrenal episode but was benign. Suspect this is pain related as she is uncomfortable but will check labs Fetus cat 1 Labor - augment prn GBS neg epidural prn History of Present Illness Chief Complaint: ctx Primary Care Provider: JAIMIE Scott 28 yo G1 at 40 wga presents w/ ctx. +FM; denies LOF, VB. Ctx began around 9am and slowly worsening in frequency and intensity. 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 Hx: G1 regular cycles denies hx stis Allergies Allergy/AdvReac Type Severity Reaction Status Date / Time cinnamon Allergy Intermediate Tongue Verified 11/30/23 11:01 swells No Known Drug Allergies Allergy 0 Verified 11/30/23 11:01 Home Medications Medication Instructions Recorded Confirmed Type vits no.124-ferrous fum 1 tab PO QPM 09/25/23 12/03/23 History 27 mg iron-folic acid 800 mcg tablet ( Vitamin) Patient History Medical History Varicella vaccination History of COVID-19 diagnosed end of 04/2022 via home test ONLY--cough, fatigue, body aches, loss of taste/smell, fever--no symptoms now Medical marijuana use MRSA infection 2014 IBS (irritable bowel syndrome) GERD (gastroesophageal reflux disease) DVT (deep venous thrombosis) 06/2018 after immobilization from bunionectomy Treated with AC for 2 months, no problems since Migraines Surgical History S/P cholecystectomy History of colonoscopy History of esophagogastroduodenoscopy (EGD) last 05/2022 @ [facility] History of incision and drainage ~2014 r/t MRSA infection in leg (unsure of side) History of bunionectomy right foot S/P wisdom tooth extraction Family History Grandmother (Maternal) Breast cancer Grandmother Breast cancer maternal great grandmother Mother Diabetes IBS (irritable bowel syndrome) Grandfather (Maternal) Myocardial infarction Other No family history of adverse response to anesthesia Denies family history of Ovarian cancer Prostate cancer Colorectal cancer Uterine cancer Social History Smoking Status: Never smoker Second Hand Exposure: No; Do You Dip or Chew Tobacco: No; Hx Alcohol Use: No Hx Substance Use: No Preferred Language: Malian Communication Ability: Effective Visual Impairment: No Limitations Hearing Ability: Normal Stock Unloader Required: No Beliefs That Will Affect Care: None marital status: marital status details: Aric Hammonds (28) [phone] Current Living Situation: Spouse Current Living Situation Comment: Lives at home with and 2 cats. 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[employer] Other Information That Helps Us Care for You: No Feels Safe at Home: Yes Safety Concerns: Feels Safe At This Time Childhood Exposure to Second-Hand Smoke: No Diet: other Diet Comment: Light diet caffeine: Yes during the past year weight has: remained stable Dental Care, Regularly: Yes Physical Activity Frequency: 1-2 Times per Week Seatbelt Use: always Sunscreen Use: Yes Assistive Devices: Glasses Physical Exam Genitourinary: OB Exam Abdomen: + vertex Manual OB Exam: + cervical dilation 4 cm, + cervical effacement 60% and + station -2 OB Exam Monitor Tracing: + external FHT monitor used, + external uterine monitor used and + category I Results & Data Vital Signs (Past 12 Hours) Vital Signs Temp Pulse BP 12/03/23 13:04 71 12/03/23 13:04 136/90 12/03/23 11:06 82 12/03/23 11:06 133/90 12/03/23 10:52 98.6 F 12/03/23 10:44 88 142/91 H Laboratory Results OB Labs: Blood Type A Positive 04/24/23 Antibody Screen NEGATIVE 04/24/23 Hemoglobin 12.1 g/dl (12.0-16.0) 10/15/23 Hematocrit 35.7 % (37.0-47.0) L 10/15/23 Mean Corpuscular Volume 89.0 fL (80.0-100.0) 10/15/23 Platelet Count 433 K/uL (130-400) H 10/15/23 Rubella IgG Antibody Immune (Immune) 04/24/23 Rapid Plasma Reagin Nonreactive (Nonreactive) 04/24/23 Hepatitis B Surface Antigen. NON-REACTIVE (NON-REACTIVE) 04/24/23 Hepatitis C Antibody (EIA) NON-REACTIVE (NON-REACTIVE) 04/24/23 HIV (1&2) Ag and Ab Confirmation NON-REACTIVE (NON-REACTIVE) 04/24/23 OB Optional Labs: Chlamydia trachomatis RNA Not Detected (NotDetected) 04/24/23 Neisseria gonorrhoeae RNA Not Detected (NotDetected) 04/24/23 Thyroid Stimulating Hormone (TSH) 1.110 uIu/ml (0.300-4.500) 03/23/20 GBS neg Diagnostic Findings 11/16 EFW 62%, post plac Code Status & VTE Plan VTE Prophylaxis Plan VTE Prophylaxis will be ordered: Yes Coding Level of Care Code None Diagnoses Z34.90
[2023-12-03 14:07] LABS: Total Protein Urine Random 7.8 mg/dl (0-11.9)
[2023-12-03 14:13] LABS: Creatinine Urine Random 72.8 mg/dl; Protein Creatinine Ratio Urine 0.1 (0-0.2)
[2023-12-03 14:38] LABS: Hematocrit (blood only) 39.7 % (37.0-47.0); Hemoglobin 13.3 g/dl (12.0-16.0); Mean Corpuscular Hemoglobin 29.2 pg (25.0-34.0); Mean Corpuscular Hgb Conc 33.5 g/dL (32.0-36.0); Mean Corpuscular Volume 87.1 fL (80.0-100.0); Platelet Count 368 K/uL (130-400); RDW Coefficient of Variation 13.1 % (11.5-14.5); RDW Standard Deviation 40.8 fL (36.4-46.3); Red Blood Count 4.56 M/uL (4.20-5.40); White Blood Count 12.18 K/ul (4.8-10.8)
[2023-12-03 14:53] LABS: Albumin Globulin Ratio 1.3 (0.9-2); Albumin Level 3.7 gm/dl (3.4-5.0); BUN Creatinine Ratio 11.5 (10-20); Bilirubin,Total 0.5 mg/dl (0.2-1.0); Creatinine Clr Calc Pharmacy 168.3 ml/min; Est GFR (Non-African American) 123.4 ml/min; Globulin 2.9 gm/dl (2.5-4.0); Potassium 4.1 mmol/L (3.5-5.1); Total Protein 6.6 gm/dl (6.0-8.3)
--- NOTE | 2023-12-03 19:57 | Labor Progress Brief Note ---
Date of Service December 03, 2023 Subjective km, not sure if they're as strong as earlier Assessment & Plan (1) : Plan: 28 yo G1 at 40 wga presents in early labor Mild range bps settled, labs were wnl so likely pain related Fetus cat 1 Labor - augment prn. Slight progress in effacement. Discussed arom, due to other acute patient care will plan for next check. GBS neg epidural prn Physical Exam Genitourinary: Manual OB Exam: + cervical dilation 4 cm, + cervical effacement 70% and + station -2 OB Exam Monitor Tracing: + external FHT monitor used, + external uterine monitor used and + category I Results & Data Vital Signs (Past 12 Hours) Vital Signs Temp Pulse Resp BP 12/03/23 19:32 88 12/03/23 19:32 128/74 12/03/23 19:30 18 12/03/23 19:30 97.7 F 18 12/03/23 14:50 78 12/03/23 14:50 133/84 12/03/23 13:04 71 12/03/23 13:04 136/90 12/03/23 11:06 82 12/03/23 11:06 133/90 12/03/23 10:52 98.6 F 12/03/23 10:44 88 142/91 H Coding Level of Care Code None Diagnoses Z34.90
[2023-12-03] MEDS: LACTATED RINGER'S 1,000 ML IV PRN (23:01)
--- NOTE | 2023-12-03 23:27 | Anesthesiology Consultation ---
Date of Service December 03, 2023 Assessment & Plan Chart Review Chart Review: Acceptable Risk for Labor Epidural Consults Requested none ASA ASA2 Proposed Anesthesia Anesthesia Type: Labor Epidural Risk / Benefits Reviewed With: PT / POA / Parent / Guardian, Accepts Plan and Informed Consent Obtained History Height/Weight Height: 5 ft 4 in Weight: 112.037 kg Allergies Allergy/AdvReac Type Severity Reaction Status Date / Time cinnamon Allergy Intermediate Tongue Verified 11/30/23 11:01 swells No Known Drug Allergies Allergy 0 Verified 11/30/23 11:01 Medications Home Medications Medication Instructions Recorded Confirmed Last Taken vits no.124-ferrous fum 1 tab PO QPM 09/25/23 12/03/23 12/02/23 27 mg iron-folic acid 800 mcg tablet ( Vitamin) Active Medications Generic Name Dose Route Start Last Admin Trade Name Freq PRN Reason Stop Dose Admin Lactated Ringer's 1,000 mls @ 125 mls/hr 12/03/23 13:05 12/03/23 23:01 Lr IV 12/05/23 13:04 999 mls/hr .Q8H PRN Administration L&D Protocol Protocol Past Medical History Medical History Varicella vaccination History of COVID-19 diagnosed end of 04/2022 via home test ONLY--cough, fatigue, body aches, loss of taste/smell, fever--no symptoms now Medical marijuana use MRSA infection 2014 IBS (irritable bowel syndrome) GERD (gastroesophageal reflux disease) DVT (deep venous thrombosis) 06/2018 after immobilization from bunionectomy Treated with AC for 2 months, no problems since Migraines Exercise / Class Metabolic Activity II 4-5 Yardwork/Stairs/Walk up hill Past Family History Family History Grandmother (Maternal) Breast cancer Grandmother Breast cancer maternal great grandmother Mother Diabetes IBS (irritable bowel syndrome) Grandfather (Maternal) Myocardial infarction Other No family history of adverse response to anesthesia Denies family history of Ovarian cancer Prostate cancer Colorectal cancer Uterine cancer Past Surgical History Surgical History S/P cholecystectomy History of colonoscopy History of esophagogastroduodenoscopy (EGD) last 05/2022 @ [facility] History of incision and drainage ~2014 r/t MRSA infection in leg (unsure of side) History of bunionectomy right foot S/P wisdom tooth extraction Past Anesthesia History No Hx of Anesthesia Complications and No Family Hx of Anesthesia Complications History of PONV No Hx of PONV and No Hx of Motion Sickness Social History Smoking Status: Never smoker Do You Dip or Chew Tobacco: No Hx Alcohol Use: No Alcohol type: wine Hx Substance Use: No substance use type: marijuana Last Used Substance Other:: quit after finding out she was Physical Exam Vital Signs Last Vital Signs Temp 97.7 F 12/03/23 19:30 Pulse 85 12/03/23 22:54 Resp 18 12/03/23 19:30 BP 124/83 12/03/23 22:54 ENMT Mouth: no dentition abnormality Thyromental Distance: > or= 3.5 Finger Breadths Mallampati Class: II Neck normal visual inspection Respiratory normal respiratory effort Auscultation: lungs clear to auscultation bilaterally Cardiovascular Rate/Rhythm: regular rate and regular rhythm Testing Laboratory Results 12/03/23 14:02 12/03/23 14:02 Blood Type A Positive 12/03/23 14:02 Antibody Screen NEGATIVE 12/03/23 14:02
[2023-12-03] MEDS ORDERED: NALOXONE HCL 0.4 MG/1 ML VIAL/CARP IV PRN (23:48)
[2023-12-03] MEDS ORDERED: BUPIVACAINE 0.25% PF 30 ML VIAL EPI PRN (23:48)
[2023-12-03] MEDS ORDERED: diphenhydrAMINE 50 MG/ML VIAL IV PRN (23:48)
[2023-12-03] MEDS ORDERED: NALBUPHINE HCL 5 MG in SYRINGE 0 ML IV PRN (23:48)
[2023-12-03] MEDS ORDERED: LIDOCAINE 2% MPF LOCAL 5 ML VIAL EPI PRN (23:48)
[2023-12-03] MEDS ORDERED: SODIUM CHLORIDE 0.9% PF INJ 10 ML VIAL EPI PRN (23:48)
[2023-12-03] MEDS ORDERED: ePHEDrine sulfate 50 MG/ML AMP IV PRN (23:48)
[2023-12-03] MEDS ORDERED: NALOXONE HCL 1 MG in SODIUM CHLORIDE 0.9% 1,000 ML IV PRN (23:48)
[2023-12-03] MEDS ORDERED: ROPIVACAINE 0.5% PF 5 MG/ML 20 ML VIAL EPI PRN (23:48)
[2023-12-03] MEDS ORDERED: fentaNYL citrate PF 100 MCG/2 ML VIAL EPI PRN (23:48)
[2023-12-03] MEDS: fentANYL 2 MCG/ML BUPIVacaine 0.125%-NSS 100ML BAG ONE (23:57)
[2023-12-03] MEDS: BUPIVACAINE 0.25% PF 30 ML VIAL ONE (23:59)
[2023-12-03] MEDS: LIDOCAINE 2%/EPINEPHRINE 1:200,000 20 ML PF ONE (23:59)
[2023-12-04] MEDS: ePHEDrine sulfate 50 MG/ML AMP ONE
[2023-12-04] MEDS: fentaNYL citrate PF 100 MCG/2 ML VIAL ONE
[2023-12-04] MEDS: SODIUM CHLORIDE 0.9% PF INJ 10 ML VIAL ONE
[2023-12-04] MEDS: OXYTOCIN 30 UNITS/NSS 30 UNITS/500 ML BAG IV PRN (00:55)
--- NOTE | 2023-12-04 02:15 | Labor Progress Brief Note ---
Date of Service December 04, 2023 Subjective comortable w/ epidural Assessment & Plan (1) : Plan: 28 yo G1 at 40 wga presents in early labor VSS Fetus cat 1 Labor - pit at 4, now s/p arom. GBS neg epidural in place Admission and Anticipated Discharge Date Admission Date: December 03, 2023 Physical Exam Genitourinary: Manual OB Exam: + cervical dilation 4 cm, + cervical effacement 70%, + station -2 and + amniotic fluid (arom clear) OB Exam Monitor Tracing: + external FHT monitor used, + external uterine monitor used (q3-4) and + category I (135/mod/+accel/-decel) Results & Data Vital Signs (Past 12 Hours) Vital Signs Temp Pulse Resp BP Pulse Ox 12/04/23 02:10 80 104/62 12/04/23 02:09 78 97 12/04/23 02:07 73 89/51 L 12/04/23 02:04 100 12/04/23 02:04 96 H 12/04/23 02:04 88 131/81 12/04/23 01:59 66 100 12/04/23 01:54 64 98 12/04/23 01:49 75 98 12/04/23 01:48 75 113/74 12/04/23 01:44 83 98 12/04/23 01:39 66 98 12/04/23 01:34 73 99 12/04/23 01:33 69 119/77 12/04/23 01:30 18 12/04/23 01:30 18 12/04/23 01:29 72 97 12/04/23 01:24 71 98 12/04/23 01:19 73 97 12/04/23 01:18 74 110/69 12/04/23 01:14 76 98 12/04/23 01:09 77 100 12/04/23 01:04 79 100 12/04/23 01:02 75 116/74 12/04/23 01:00 16 12/04/23 01:00 16 12/04/23 00:59 69 100 12/04/23 00:54 78 100 12/04/23 00:49 78 100 12/04/23 00:48 71 122/78 12/04/23 00:45 83 80 L 12/04/23 00:44 66 100 12/04/23 00:39 65 100 12/04/23 00:34 100 12/04/23 00:34 70 12/04/23 00:34 70 135/91 12/04/23 00:29 69 100 12/04/23 00:24 73 100 12/04/23 00:19 74 100 12/04/23 00:17 81 128/74 12/04/23 00:15 73 133/71 12/04/23 00:14 78 100 12/04/23 00:13 72 115/68 12/04/23 00:11 74 122/62 12/04/23 00:09 71 107/69 100 12/04/23 00:07 68 105/61 12/04/23 00:05 75 105/63 12/04/23 00:04 77 100 12/04/23 00:03 67 111/66 12/04/23 00:01 98 H 12/04/23 00:01 94/59 L 12/04/23 00:01 75 88/54 L 12/04/23 00:00 16 12/04/23 00:00 97.7 F 16 12/03/23 23:59 100 12/03/23 23:59 82 12/03/23 23:59 82 12/03/23 23:59 96/53 L 12/03/23 23:57 101/61 12/03/23 23:55 93 H 12/03/23 23:55 94/56 L 12/03/23 23:54 100 12/03/23 23:54 92 H 12/03/23 23:53 87 12/03/23 23:53 94/51 L 12/03/23 23:49 100 12/03/23 23:49 80 12/03/23 23:49 70/35 L 12/03/23 23:47 118 H 12/03/23 23:47 101/45 L 12/03/23 23:44 99 12/03/23 23:44 101 H 12/03/23 23:43 89 12/03/23 23:43 157/68 H 12/03/23 23:41 96 H 12/03/23 23:41 148/75 H 12/03/23 23:39 97 12/03/23 23:39 121 H 12/03/23 23:39 163/85 H 12/03/23 23:34 100 12/03/23 23:34 84 12/03/23 23:29 100 12/03/23 23:29 94 H 12/03/23 22:54 85 12/03/23 22:54 124/83 12/03/23 19:32 88 12/03/23 19:32 128/74 12/03/23 19:30 18 12/03/23 19:30 97.7 F 18 12/03/23 14:50 78 12/03/23 14:50 133/84 Coding Level of Care Code None Diagnoses Z34.90
[2023-12-04] MEDS: fentANYL 2 MCG/ML BUPIVacaine 0.125%-NSS 100ML BAG EPI PRN (08:38)
--- NOTE | 2023-12-04 08:42 | Labor Progress Brief Note ---
Date of Service December 04, 2023 Subjective occ discomfort Assessment & Plan (1) : Plan: 28 yo G1 at 40 wga presents in early labor VSS Fetus cat 1 Labor - great progress to 9, continue augmentation GBS neg epidural in place Admission and Anticipated Discharge Date Admission Date: December 03, 2023 Physical Exam Genitourinary: Manual OB Exam: + cervical dilation 9 cm, + cervical effacement 90% and + station 0 OB Exam Monitor Tracing: + external FHT monitor used, + external uterine monitor used (q3) and + category I (135/mod/+accel/-decel) Results & Data Vital Signs (Past 12 Hours) Vital Signs Temp Pulse Resp BP Pulse Ox 12/04/23 08:39 81 100 12/04/23 08:34 93 H 100 12/04/23 08:32 65 127/73 12/04/23 08:29 64 100 12/04/23 08:24 76 100 12/04/23 08:19 74 131/85 99 12/04/23 08:14 78 98 12/04/23 08:09 80 99 12/04/23 08:04 82 100 12/04/23 08:02 80 116/67 12/04/23 07:59 82 100 12/04/23 07:54 77 100 12/04/23 07:49 79 100 12/04/23 07:48 72 114/57 L 12/04/23 07:44 88 100 12/04/23 07:39 84 100 12/04/23 07:34 82 100 12/04/23 07:32 85 118/79 12/04/23 07:29 83 99 12/04/23 07:24 78 99 12/04/23 07:19 78 99 12/04/23 07:18 98.4 F 80 20 132/82 12/04/23 07:14 81 100 12/04/23 07:09 82 100 12/04/23 07:04 81 99 12/04/23 07:03 79 112/64 12/04/23 06:59 82 98 12/04/23 06:54 69 98 12/04/23 06:49 78 98 12/04/23 06:48 71 106/56 L 12/04/23 06:44 81 97 12/04/23 06:39 80 97 12/04/23 06:34 97 12/04/23 06:34 87 03/12/24 06:34 94 H 108/60 12/04/23 06:30 16 12/04/23 06:30 98.1 F 16 12/04/23 06:29 74 97 12/04/23 06:24 92 H 98 12/04/23 06:19 78 98 12/04/23 06:18 72 141/78 H 12/04/23 06:14 74 100 12/04/23 06:09 77 98 12/04/23 06:04 86 100 12/04/23 06:03 82 128/74 12/04/23 05:59 82 100 12/04/23 05:54 83 98 12/04/23 05:49 68 99 12/04/23 05:48 72 137/93 12/04/23 05:44 66 99 12/04/23 05:39 68 100 12/04/23 05:34 100 12/04/23 05:34 69 12/04/23 05:34 72 139/75 12/04/23 05:30 18 12/04/23 05:30 18 12/04/23 05:29 74 100 12/04/23 05:24 77 100 12/04/23 05:19 99 12/04/23 05:19 76 12/04/23 05:19 71 157/88 H 12/04/23 05:14 66 100 12/04/23 05:09 84 100 12/04/23 05:04 68 100 12/04/23 05:03 67 137/81 12/04/23 05:00 18 12/04/23 05:00 18 12/04/23 04:59 79 98 12/04/23 04:54 74 99 12/04/23 04:49 62 100 12/04/23 04:47 90 132/68 12/04/23 04:44 68 99 12/04/23 04:39 80 98 12/04/23 04:34 73 98 12/04/23 04:33 73 136/59 L 12/04/23 04:29 69 99 12/04/23 04:24 68 99 12/04/23 04:20 67 138/62 12/04/23 04:19 64 100 12/04/23 04:14 82 100 12/04/23 04:09 62 99 12/04/23 04:04 66 99 12/04/23 04:03 66 127/60 12/04/23 04:00 18 12/04/23 04:00 98.1 F 18 12/04/23 04:00 18 12/04/23 04:00 18 12/04/23 03:59 80 100 12/04/23 03:54 65 99 12/04/23 03:49 67 99 12/04/23 03:48 68 126/60 12/04/23 03:44 70 100 12/04/23 03:39 69 99 12/04/23 03:34 64 131/63 98 12/04/23 03:30 18 12/04/23 03:30 18 12/04/23 03:29 71 98 12/04/23 03:24 65 98 12/04/23 03:19 74 100 12/04/23 03:17 64 123/56 L 12/04/23 03:14 78 100 12/04/23 03:09 80 99 12/04/23 03:04 77 98 12/04/23 03:03 76 117/79 12/04/23 03:00 18 12/04/23 03:00 18 12/04/23 02:59 79 97 12/04/23 02:54 85 97 12/04/23 02:49 75 98 12/04/23 02:47 86 109/68 12/04/23 02:44 75 98 12/04/23 02:39 72 99 12/04/23 02:34 73 96 12/04/23 02:32 76 107/60 12/04/23 02:30 16 12/04/23 02:30 16 12/04/23 02:29 65 98 12/04/23 02:24 69 98 12/04/23 02:19 89 99 12/04/23 02:18 88 108/60 12/04/23 02:14 70 100 12/04/23 02:10 80 104/62 12/04/23 02:09 78 97 12/04/23 02:07 73 89/51 L 12/04/23 02:04 100 12/04/23 02:04 96 H 12/04/23 02:04 88 131/81 12/04/23 02:00 16 12/04/23 02:00 97.7 F 16 12/04/23 02:00 16 12/04/23 02:00 16 12/04/23 01:59 66 100 12/04/23 01:54 64 98 12/04/23 01:49 75 98 12/04/23 01:48 75 113/74 12/04/23 01:44 83 98 12/04/23 01:39 66 98 12/04/23 01:34 73 99 12/04/23 01:33 69 119/77 12/04/23 01:30 18 12/04/23 01:30 18 12/04/23 01:29 72 97 12/04/23 01:24 71 98 12/04/23 01:19 73 97 12/04/23 01:18 74 110/69 12/04/23 01:14 76 98 12/04/23 01:09 77 100 12/04/23 01:04 79 100 12/04/23 01:02 75 116/74 12/04/23 01:00 16 12/04/23 01:00 16 12/04/23 00:59 69 100 12/04/23 00:54 78 100 12/04/23 00:49 78 100 12/04/23 00:48 71 122/78 12/04/23 00:45 83 80 L 12/04/23 00:44 66 100 12/04/23 00:39 65 100 12/04/23 00:34 100 12/04/23 00:34 70 12/04/23 00:34 70 135/91 12/04/23 00:29 69 100 12/04/23 00:24 73 100 12/04/23 00:19 74 100 12/04/23 00:17 81 128/74 12/04/23 00:15 73 133/71 12/04/23 00:14 78 100 12/04/23 00:13 72 115/68 12/04/23 00:11 74 122/62 12/04/23 00:09 71 107/69 100 12/04/23 00:07 68 105/61 12/04/23 00:05 75 105/63 12/04/23 00:04 77 100 12/04/23 00:03 67 111/66 12/04/23 00:01 98 H 12/04/23 00:01 94/59 L 12/04/23 00:01 75 88/54 L 12/04/23 00:00 16 12/04/23 00:00 97.7 F 16 12/03/23 23:59 100 12/03/23 23:59 82 12/03/23 23:59 82 12/03/23 23:59 96/53 L 12/03/23 23:57 101/61 12/03/23 23:55 93 H 12/03/23 23:55 94/56 L 12/03/23 23:54 100 12/03/23 23:54 92 H 12/03/23 23:53 87 12/03/23 23:53 94/51 L 12/03/23 23:49 100 12/03/23 23:49 80 12/03/23 23:49 70/35 L 12/03/23 23:47 118 H 12/03/23 23:47 101/45 L 12/03/23 23:44 99 12/03/23 23:44 101 H 12/03/23 23:43 89 12/03/23 23:43 157/68 H 12/03/23 23:41 96 H 12/03/23 23:41 148/75 H 12/03/23 23:39 97 12/03/23 23:39 121 H 12/03/23 23:39 163/85 H 12/03/23 23:34 100 12/03/23 23:34 84 12/03/23 23:29 100 12/03/23 23:29 94 H 12/03/23 22:54 85 12/03/23 22:54 124/83 Coding Level of Care Code None Diagnoses Z34.90
[2023-12-04] MEDS: ONDANSETRON INJ 2 MG/ML 2 ML VIAL IV PRN (10:46)
[2023-12-04] MEDS ORDERED: OXYTOCIN 30 UNITS/NSS 30 UNITS/500 ML BAG IV PRN (12:35)
[2023-12-04] MEDS ORDERED: HYDROCORTISONE ACETATE 25 MG SUPP PR PRN (12:35)
[2023-12-04] MEDS ORDERED: oxyCODONE/ACETAMINOPHEN 5mg/325mg TAB PO PRN (12:35)
[2023-12-04] MEDS ORDERED: BENZOCAINE 20% SPRY 85 APPLN/85 GM CAN EXT PRN (12:35)
[2023-12-04] MEDS ORDERED: ACETAMINOPHEN 325 MG TAB PO PRN (12:35)
[2023-12-04] MEDS ORDERED: bisacodyL 10 MG SUPP PR PRN (12:35)
[2023-12-04] MEDS ORDERED: ZOLPIDEM TARTRATE 5 MG TAB PO PRN (12:43)
--- NOTE | 2023-12-04 14:25 | Anesthesia Procedure Note ---
Date of Service December 04, 2023 Anesthesia Post Epidural Note Vital Signs Vital Signs: Temp Pulse Resp BP Pulse Ox 36.8 C 87 20 118/56 L 98 12/04/23 12:45 12/04/23 14:17 12/04/23 13:45 12/04/23 14:17 12/04/23 12:39 Pain Intensity Lower Abdomen: Pain Intensity: 0 Notes Mental Status: alert / awake / arousable and participated in evaluation Nausea / Vomiting: adequately controlled Pain: adequately controlled Airway Patency, RR, SpO2: stable & adequate BP & HR: stable & adequate Hydration State: stable & adequate Neuraxial Anesthesia: was administered and sensory block is resolving Anesthetic Complications: no major complications apparent and Pt Satisfied with anesthetic care Epidural: Removed without complications and With tip intact
--- NOTE | 2023-12-04 16:27 | Delivery Summary ---
Vaginal Delivery Summary Date of Service December 04, 2023 Vaginal Delivery Summary and 1st Degree LAC (superficial abrasion fourchette) Patient is a 28-year-old 1 P0 female who presented in active labor at 40-1/7 weeks. Membranes were ruptured for clear fluid, and she received effective epidural analgesia. She required Pitocin augmentation of her labor but progressed to full dilation with the urge to push. She pushed effectively over intact perineum for delivery of a viable female . After the head was delivered the rest the infant delivered with hyperflexion of the hips to reduce a mild shoulder dystocia. The infant was placed on the mother's abdomen for fur ther attention and drying. She was vigorous crying and moving all 4 limbs. The cord was clamped and cut after 1 minute. After cord blood was obtained, the placenta was expressed intact with a three-vessel cord. bleeding was controlled with dilute Pitocin and fundal massage. The perineum was noted to be intact with 1 superficial abrasion noted on the perineum which was not bleeding and therefore not repaired. QBL was 200 cc. Mother and infant are doing well after delivery. [facility] [place] Delivery Type Details: and 1st Degree LAC (superficial abrasion fourchette)
[2023-12-04] MEDS: DOCUSATE SODIUM 100 MG CAP PO SCH (22:37)
[2023-12-04] MEDS: IBUPROFEN 600 MG TAB PO PRN (22:37)
--- NOTE | 2023-12-05 06:08 | Obstetrical Progress Note ---
Date of Service <Zhang Garzon MD - Last Filed: 12/05/23 07:48> December 05, 2023 Assessment & Plan <Zhang Garzon MD - Last Filed: 12/05/23 07:48> (1) (normal spontaneous vaginal delivery): Plan 30 yo , status post on 12/04/23. - Pt doing well clinically. Feels well today. Eating well, voiding well, ambulating well. Pain well controlled with PRN pain meds. - Routine care -- OOB, ambulation, diet progression as tolerated - Pt has f/u appt w/ scale installer for adrenal hemorrhage that occurred during in a few weeks. No current Sx. Vital Signs reviewed and WNL. (Tmax at 37.1) Hemoglobin Reviewed. 13.3 (12/03/23) pending(today). Blood Type: A+, GBS-, Rubella Immune. Encourage ambulation, monitor and control pain with Motrin PRN, resume regular diet, monitor lochia. Breast feeding encouraged. After discharge will have 6 week follow-up with Dr. Koenig.. Pt encouraged to stay for 2 days but counseled on discharge instructions, in the event they choose to go home today. <Ebonie Morris MD, FACOG - Last Filed: 12/05/23 08:30> (1) (normal spontaneous vaginal delivery): Subjective <Zhang Garzon MD - Last Filed: 12/05/23 07:48> Ambulation: ambulating normally Voiding: no voiding problems Passing Gas:: Yes Diet Tolerance:: regular diet Lochia:: Moderate Feeding Type:: breast feeding Current Pain Level(1-10): 2 (w/ breast feeding) Constitutional: no fever, no chills or no weakness Eyes: no diplopia, no seeing flashes or no worsening vision Ear, Nose, Mouth, Throat: no nasal congestion, no nasal discharge or no sore throat Respiratory: no cough, no chest congestion or no dyspnea Cardiovascular: no chest pain or no palpitations Gastrointestinal: no abdominal pain, no nausea, no vomiting, no constipation or no diarrhea/loose stools Genitourinary (female): no dysuria or no urinary frequency Neurologic: no tingling, no numbness or no headache(s) Physical Exam <Zhang Garzon MD - Last Filed: 12/05/23 07:48> Constitutional WD/WN, vitals as above Respiratory normal respiratory effort, lungs clear to auscultation Cardiovascular RRR, no murmur, no edema Extremities: normal capillary refill; no calf tenderness Gastrointestinal (Abdomen) Inspection/Auscultation: abdomen normal to inspection and normal bowel sounds Percussion/Palpation: + abdomen tender (mild diffuse tenderness) Psychiatric A+Ox3, euthymic affect Results & Data <Zhang Garzon MD - Last Filed: 12/05/23 07:48> Vital Signs (Past 12 Hours) Vital Signs Temp Pulse Resp BP 12/05/23 03:45 36.6 C 54 L 18 120/83 12/05/23 00:30 36.8 C 67 18 101/62 12/04/23 19:45 37.1 C 78 18 133/85 Supervising Physician <Ebonie Morris MD, FACOG - Last Filed: 12/05/23 08:30> Co-Signing Physician Notes Resident Physician Supervision Note: I interviewed and examined the patient. Discussed with Dr. Garzon and agree with findings and plan as documented in the note. Any exceptions or clarifications are listed here: [None] Documented By: Ebonie Morris MD, FACOG
[2023-12-05] MEDS: BUPIVACAINE 0.25% PF 30 ML VIAL EPI STA (07:17)
[2023-12-05] MEDS: SODIUM CHLORIDE 0.9% PF INJ 10 ML VIAL EPI STA (07:18)
[2023-12-05] MEDS: LIDOCAINE 2%/EPINEPHRINE 1:200,000 20 ML PF EPI STA (07:18)
[2023-12-05] MEDS: fentaNYL citrate PF 100 MCG/2 ML VIAL EPI STA (07:18)
[2023-12-05 07:25] LABS: Hematocrit (blood only) 33.4 % (37.0-47.0); Hemoglobin 11.1 g/dl (12.0-16.0); Mean Corpuscular Hemoglobin 29.5 pg (25.0-34.0); Mean Corpuscular Hgb Conc 33.2 g/dL (32.0-36.0); Mean Corpuscular Volume 88.8 fL (80.0-100.0); Mean Platelet Volume 10.9 fL (9.4-12.4); Platelet Count 276 K/uL (130-400); RDW Coefficient of Variation 13.2 % (11.5-14.5); RDW Standard Deviation 43.2 fL (36.4-46.3); Red Blood Count 3.76 M/uL (4.20-5.40); White Blood Count 11.68 K/ul (4.8-10.8)
[2023-12-05] MEDS: PRENATAL VITAMIN 1 TAB PO SCH (08:27)
[2023-12-05] MEDS: bisacodyL 5 MG TABEC PO SCH (21:51)
--- NOTE | 2023-12-06 06:10 | Obstetrical Progress Note ---
Date of Service <Zhang Garzon MD - Last Filed: 12/06/23 07:42> December 06, 2023 Assessment & Plan <Zhnag Garzon MD - Last Filed: 12/06/23 07:42> (1) (normal spontaneous vaginal delivery): Plan 30 yo , status post on 12/04/23. - Pt doing well clinically. Feels well today. Eating well, voiding well, ambulating well. Pain well controlled with PRN pain meds. 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 No current Sx. Vital Signs reviewed and WNL. (Tmax at 37.1) Hemoglobin Reviewed. 13.3 (12/03/23) 11.1(yesterday). Patient has no symptoms of anemia: weakness, dyspnea, unusual fatigue. Blood Type: A+, GBS-, Rubella Immune. Encourage ambulation, monitor and control pain with Motrin PRN, resume regular diet, monitor lochia. Breast feeding encouraged. After discharge will have 6 week follow-up with Dr. Koenig.. Pt counseled on discharge instructions, since they'll be jaciel home today. <Jeannine Kinney DO - Last Filed: 12/06/23 07:53> (1) (normal spontaneous vaginal delivery): Subjective <Zhang Garzon MD - Last Filed: 12/06/23 07:42> Ambulation: ambulating normally Voiding: no voiding problems Passing Gas:: Yes Diet Tolerance:: regular diet Lochia:: Small Feeding Type:: breast feeding Current Pain Level(1-10): 1 (mostly residual cramping some breast tenderness during ) Constitutional: no fever, no chills or no weakness Eyes: no diplopia, no seeing flashes or no worsening vision Ear, Nose, Mouth, Throat: no nasal congestion, no nasal discharge or no sore throat Respiratory: no cough, no chest congestion or no dyspnea Cardiovascular: no chest pain or no palpitations Gastrointestinal: no abdominal pain, no nausea, no vomiting, no constipation or no diarrhea/loose stools Genitourinary (female): no dysuria or no urinary frequency Neurologic: no tingling, no numbness or no headache(s) Physical Exam <Zhang Garzon MD - Last Filed: 12/06/23 07:42> Constitutional WD/WN, vitals as above Respiratory normal respiratory effort, lungs clear to auscultation Cardiovascular RRR, no murmur, no edema Extremities: normal capillary refill; no calf tenderness Gastrointestinal (Abdomen) Inspection/Auscultation: abdomen normal to inspection and normal bowel sounds Percussion/Palpation: + abdomen tender (mild diffuse tenderness) Psychiatric A+Ox3, euthymic affect Results & Data <Zhang Garzon MD - Last Filed: 12/06/23 07:42> Vital Signs (Past 12 Hours) Vital Signs Temp Pulse Resp BP Pulse Ox O2 Del Method 12/06/23 00:40 36.8 C 66 16 114/80 99 Room Air 12/05/23 21:35 36.6 C 68 16 135/89 100 Room Air Supervising Physician <Jeannine Kinney DO - Last Filed: 12/06/23 07:53> Co-Signing Physician Notes Resident Physician Supervision Note: I was present with Dr. Garzon during the history and exam. I discussed the case with the resident and agree with the findings and plan as documented in the note. Any exceptions or clarifications are listed here: PPD#2 doing well. No concerns. DC home. Followup 6w PP. Instructions reviewed. Documented By: Jeannine Kinney DO
[2023-12-06 06:40] LABS: Hematocrit (blood only) 32.5 % (37.0-47.0); Hemoglobin 11.2 g/dl (12.0-16.0)
[2023-12-06] MEDS: DIPHTHER/TETAN/PERTUS Vaccine (Tdap, Adol/Adult) 0.5mL IM ONE (09:20)
== END 2023-12-06 14:46 | disposition home or self-care (01) | DRG 807 ==
LOC: 4S1 10:26 → OPB 10:26 → 4S1 13:06 → 4E2 12-04 16:17